=== PATIENT | female | born 1995 | race Caucasian/White ===

== ENCOUNTER 2018-12-13 18:30 | Emergency (ER) | payer OTHER ==
[~2018-12-13] VITALS: Ht 167.6 cm; Wt 70.8 kg
[~2018-12-13 18:30] MED LIST: CIPRO500 MG PO; HEMOCYTE PLUS1 EACH PO; KEFLEX500 MG PO; LEVAQUIN500 MG PO; ULTRAM50 MG PO
--- NOTE | 2018-12-13 19:18 | Diagnostic Imaging Report ---
KNEE LEFT THREE VIEWS - 3 views HISTORY: Pain COMPARISON: None available. FINDINGS: Bones: No acute displaced fracture. Osseous alignment is within normal limits. Joints: The joint spaces are well-maintained. Soft tissues: The soft tissues appear unremarkable. IMPRESSION: No acute fracture or dislocation of the left knee. Signed by: Dr. Shreyas Hubbard MD on 12/13/2018 7:15 PM
[2018-12-13] MEDS ORDERED: TYLENOL WITH C1 EACH PO (19:34)
[2018-12-13 22:31] VITALS: BP 116/83
== END 2018-12-13 20:20 | disposition home or self-care (01) ==
LOC: ER 18:30
DX: M25.562 Pain in left knee (principal); S83.412A Sprain of medial collateral ligament of left knee, initial encounter; Y93.68 Activity, volleyball (beach) (court); Y92.007 Garden or yard of unspecified non-institutional (private) residence as the place of occurrence of the external cause; F90.9 Attention-deficit hyperactivity disorder, unspecified type
CPT/HCPCS: 99283

== ENCOUNTER → 2019-01-05 | Day surgery (SDC) | payer OTHER ==
[~2019-01-05] MED LIST changes: +ACETAMINOP325 MG/10 PO; +ACETAMINOPHEN 1000 MG/100 ML IV ONE; +BACITRACIN 50,000 UNIT VIAL ONE; +CEFAZOLIN SOD 1 GM/NS 50ML 50 ML IV ONE; +D-AMPHETAMINE PO; +DEXAMETHASONE SOD PHOS INJ 4 MG/ML VIAL ONE; +FENTANYL CITRATE/PF 100MCG/2 ML INJ ONE; +HYDROCODONE/APAP 7.5MG-325MG 1 EA TAB ONE; +LIDOCAINE 2% /EPINEPHRINE 20 ML SDV INJ ONE; +LIDOCAINE HCL 2% JELLY 5 ML TUBE ONE; +LIDOCAINE HCL 2% LOCAL INJ 5 ML SDV VIAL INJ ONE; +LO LOESTRIN FE1 EACH PO; +MIDAZOLAM HCL 2 MG/2 ML VIAL ONE; +MORPHINE SULFATE INJ 4 MG/ML INJ 1ML ONE; +ONDANSETRON HCL INJ 2MG/ML 2ML 2 MG/ML VIAL ONE; +PROPOFOL IV EMULSION 10 MG/ML 20 ML VIAL ONE; +ROPIVACAINE 0.5% 5 MG/ML 30 ML SDV ONE; +SEVOFLURANE INHAL SOLN 250 ML PEN BTL ONE; +TYLENOL WITH C1 EACH PO
--- OUTSIDE RECORDS SUMMARY | 2019-01-05 06:37 | XMS REPORT ---
Author Author [facility] Address Unknown Phone Unavailable Care Team Providers Care Short Filler Bunch Machine Operator Name Role Phone Lucien CLIFFORD Unavailable Unavailable Problems This patient has no known problems. Allergies, Adverse Reactions, Alerts This patient has no known allergies or adverse reactions. Medications This patient has no known medications. Results Test Description Test Time Test Comments Text Results Atomic Results Result Comments KNEE LEFT THREE VIEWS 2018-12-13 19:14:00 [facility] [address] [address] Patient Name: FIORELLA FRITZ MR #: [id number] : 1995 Age/Sex: 22/F Req #: [id number] Adm Physician: Ordered by: DIONE BURKETT PUBLIC SERVICES ASSISTANT Report #: [id number] Location: ER Room/Bed: Procedure: [id number] DX/KNEE LEFT THREE VIEWS Exam Date: 12/13/18 Exam Time: 1900 REPORT STATUS: Signed KNEE LEFT THREE VIEWS - 3 views HISTORY: Pain COMPARISON: None available. FINDINGS: Bones: No acute displaced fracture. Osseous alignment is within normal limits. Joints: The joint spaces are well-maintained. Soft tissues: The soft tissues appear unremarkable. IMPRESSION: No acute fracture or dislocation of the left knee. Signed by: Dr. Shreyas Proctor MD on 12/13/2018 7:15 PM Dictated By: SHREYAS PROCTOR MD 14 Transcribed By: EN on 12/13/181914 COPY TO: DIONE BURKETT NP
--- NOTE | 2019-01-05 10:07 | Operative Report ---
DATE OF PROCEDURE: 01/05/2019 SURGEON: Olivier Amaro MD SEMIAUTOMATIC TAPER OPERATOR: Uvaldo Connor PA-C. PREOPERATIVE DIAGNOSIS: Left knee acute anterior cruciate ligament tear. POSTOPERATIVE DIAGNOSIS: Left knee acute anterior cruciate ligament tear. PROCEDURE: Left knee arthroscopy, anterior cruciate ligament reconstruction. INDICATIONS: The patient is a 23-year-old young lady, who tore her left knee anterior cruciate ligament playing volleyball. She has been rehabilitated to obtain full range of motion. She would like to proceed with surgical reconstruction. The risks and benefits have been discussed. The options of graft choices were discussed. All of her questions were answered. She would like to proceed with an allograft reconstruction. The risks and benefits were thoroughly explained. She stated she understood and wished to proceed. PROCEDURE IN DETAIL: The patient was brought to the operating room and placed under general anesthetic. She received prophylactic antibiotics and a regional block in the holding area. Her left lower extremity was examined under anesthesia. She was noted to have a 2+ positive Hubert with a soft stop. She was noted to have a positive pivot shift, but good collateral stability. This was compared to the right knee, which had normal stability. The left leg was prepped and draped in a sterile manner. A preoperative time-out was performed. The extremity had been exsanguinated and the proximal tourniquet had been inflated to 300 mmHg. Standard arthroscopy portals were established. The knee was insufflated with sterile saline and systematically inspected. The suprapatellar pouch, patellofemoral groove, medial and lateral gutters were completely normal. The medial compartment was inspected and probed. There was no evidence of a medial meniscal tear. The articular surfaces of the medial tibial plateau and medial femoral condyle were pristine. The lateral compartment was inspected and also demonstrated no evidence of a tear or damage to the articular surfaces. There was complete avulsion of the femoral insertion of the anterior cruciate ligament. The remnant of the anterior cruciate ligament was removed with a combination of biting forceps and a mechanical shaver. An extra-articular alignment guide was used to place a guide pin into the footprint of the previous ACL tibial insertion. The positioning was also referenced off the posterior border of the anterior horn of the lateral meniscus. The tibialis anterior allograft was sized on the back table at 10 mm. A 10 mm reamer was placed over the guide pin. The joint was cleared of any bone or other debris as a result of the drilling. A 5 mm buob-cuz-qio guide was then used to place a femoral guide pin at approximately the 2 to 3 o'clock position. This was advanced out the lateral femoral cortex and out the soft tissue. This was overreamed to a distance of about 35 mm with a 10 mm [place] reamer. Once again, the joint was cleared of all bone debris. The 3.5 mm EndoButton drill was then placed over the guide pin. The length of the EndoButton tunnel was about 44 mm. A 20 mm EndoButton was chosen. This was placed onto the allograft. 20 mm was marked off on the graft. The graft was passed and the EndoButton was deployed over the anterior femoral cortex. The knee was cycled. The 20 mm nani was noted to be completely buried into the femoral tunnel. The knee was cycled for a number of times with tension applied to the allograft. A 10 mm x 25 mm bioabsorbable interference screw was then placed into the tibial tunnel. Care was taken to ensure that the graft remained anterior in the tunnel. What was left of the graft was resected after the reconstruction was probed and noted to be under appropriate tension. The knee was further irrigated. All arthroscopic instruments were removed. The incisions were closed with subcuticular Vicryl, Mastisol, and Steri-Strips. A sterile bandage and a [place] brace were applied. Estimated blood loss was less than 10 mL. At the end of the procedure, all needle and sponge counts were correct. Olivier Amaro MD DR/DURAN /[id number]
[2019-01-05 11:15] VITALS: BP 121/78
--- NOTE | 2019-01-06 12:31 | NUR ---
PATIENT DME COMPANY PRE-ARRANGED BY DR. HA'S OFFICE. PATIENT WITH DME CONTACT INFORMATION. PATIENT AWARE TO CALL CM IF ANY PROBLEMS OCCUR WITHIN 3 DAYS POST- DISCHARGE. THE FOLLOWING DME COMPANY VERIFIED PATIENT IS ON SERVICE WITH THEM: [employer] : (CPM) (P) [phone] (F) [phone] EQUIPMENT DELIVERED TO HOME WITH PATIENT CYRUS BONDS @ [phone]
== END | disposition home or self-care (01) ==
LOC: OR 06:35
PROVIDERS: ATTEND Specialist
DX: S83.512A Sprain of anterior cruciate ligament of left knee, initial encounter (principal); D64.9 Anemia, unspecified; F41.9 Anxiety disorder, unspecified; W18.39XA Other fall on same level, initial encounter; Y93.68 Activity, volleyball (beach) (court); Y99.8 Other external cause status
CPT/HCPCS: 29888; 81025; C1713 ×2; J0131; J0690; J1100; J2001 ×3; J2250; J2270; J2405; J2704; J2795; J3010

== ENCOUNTER 2019-02-02 10:00 | Outpatient (RCR) | payer OTHER ==
[~2019-02-02 10:00] MED LIST changes: -ACETAMINOPHEN 1000 MG/100 ML IV ONE; -BACITRACIN 50,000 UNIT VIAL ONE; -CEFAZOLIN SOD 1 GM/NS 50ML 50 ML IV ONE; -DEXAMETHASONE SOD PHOS INJ 4 MG/ML VIAL ONE; -FENTANYL CITRATE/PF 100MCG/2 ML INJ ONE; -HYDROCODONE/APAP 7.5MG-325MG 1 EA TAB ONE; -LIDOCAINE 2% /EPINEPHRINE 20 ML SDV INJ ONE; -LIDOCAINE HCL 2% JELLY 5 ML TUBE ONE; -LIDOCAINE HCL 2% LOCAL INJ 5 ML SDV VIAL INJ ONE; -MIDAZOLAM HCL 2 MG/2 ML VIAL ONE; -MORPHINE SULFATE INJ 4 MG/ML INJ 1ML ONE; -ONDANSETRON HCL INJ 2MG/ML 2ML 2 MG/ML VIAL ONE; -PROPOFOL IV EMULSION 10 MG/ML 20 ML VIAL ONE; -ROPIVACAINE 0.5% 5 MG/ML 30 ML SDV ONE; -SEVOFLURANE INHAL SOLN 250 ML PEN BTL ONE
== END 2019-02-03 ==
LOC: PT 10:00
PROVIDERS: ATTEND Specialist
DX: S83.512D Sprain of anterior cruciate ligament of left knee, subsequent encounter (principal); Z47.89 Encounter for other orthopedic aftercare; M25.562 Pain in left knee; M62.81 Muscle weakness (generalized)

== ENCOUNTER 2019-02-25 16:00 | Outpatient (RCR) | payer OTHER | END 2019-03-06 | LOC: PT 16:00 | PROVIDERS: ATTEND Specialist | DX: S83.512D Sprain of anterior cruciate ligament of left knee, subsequent encounter (principal); Z47.89 Encounter for other orthopedic aftercare; M62.81 Muscle weakness (generalized); M25.562 Pain in left knee | CPT/HCPCS: 97010; 97110 ×4; 97139; G0283 ==